=== PATIENT | male | born 1940 | race Caucasian/White ===

== ENCOUNTER 2016-11-14 06:19 | Observation (INO) | payer OTHER ==
[~2016-11-14] VITALS: Ht 162.6 cm; Wt 76.0 kg
[2016-11-14] VITALS (33 sets, daily range): BP systolic 116–176; BP diastolic 55–76; PULSE 60–93; RESP 8–21; Ht 162.6 cm; Wt 76.0 kg
[~2016-11-14 06:19] MED LIST: ACET1TAB40 PO; ASPI-535 PO; ASPI-664 PO; CARV12.579 PO; CARV12.598 PO; CITA10TA84 PO; CITA20TA6 PO; CLON-379 PO; CLOP75TA27 PO; CYCL-319 PO; DEXA2TAB5 PO; GABA300C PO; GABA300C16 PO; Hydrocodone Bit/Acetaminophen PO; IBUP-1542 PO; INSU100C3 SC; ISOS60TA PO; LANT3I SC; LOSA100T7 PO; LOSA50TA6 PO; MTF1000T PO; NOVO3I SC; OMEG1CAP2 PO; OMEP40CA3 PO; OMEP40CA6 PO; PANT40TA4 PO; SIMV40TA2 PO; SIMV40TA3 PO; SPIR25TA PO; TERA5CAP3 PO; TRAM50TA2 PO
[2016-11-14] MEDS ORDERED: SOD CHLORIDE 0.9% 1,000 ML IV SCH ×2 (07:00→10:36)
[2016-11-14] MEDS ORDERED: VERAPAMIL 5 MG INJ ONE (07:08)
[2016-11-14] MEDS ORDERED: MIDAZOLAM 1 MG/ML 2 ML INJ ONE (07:08)
[2016-11-14] MEDS ORDERED: IODIXANOL LOCM 100 ML BTL ONE ×3 (07:08→10:22)
[2016-11-14] MEDS ORDERED: HEPARIN 1000 UNITS/ML 10 ML INJ ONE ×2 (07:08→10:07)
[2016-11-14] MEDS ORDERED: LIDOCAINE 1% (MDV) 20 ML INJ ONE (07:08)
[2016-11-14] MEDS ORDERED: NITROGLYCERIN (IC) 100 MCG/ML INJ ONE (07:08)
[2016-11-14] MEDS ORDERED: FENTAnyl 50 MCG/ML VIAL ONE (07:08)
--- NOTE | 2016-11-14 07:17 | RADRPT ---
PROCEDURE: XR Chest. CLINICAL INDICATION: Preoperative evaluation prior to cardiac catheterization. TECHNIQUE: Portable single view of the chest COMPARISON: 09/03/2014 FINDINGS: Top normal heart size. Subsegmental atelectasis of the left lung base. No acute infiltrate, pleural effusion, or overt congestive heart failure. Degenerative change of the spine and shoulders. IMPRESSION: No definite acute pulmonary disease. RPTAT: [facility] Joceline Snyder Physician Date Time Electronically viewed and signed by Joceline Snyder, Physician on 11/14/2016 07:16 LE/
[2016-11-14] MEDS ORDERED: CHLO25TA13 PO (07:27)
[2016-11-14 07:35] LABS: BASOPHILS % 0.6 % (0.0-2.0); EOSINOPHILS # 0.5 10^3/ul (0.0-0.5); EOSINOPHILS % 7.9 % (0.0-7.0); HEMATOCRIT 32.9 % (42.0-52.0); HEMOGLOBIN 11.1 g/dl (14.0-18.0); LYMPHOCYTES # 2.1 10^3/ul (0.8-2.9); LYMPHOCYTES % 33.1 % (15.0-51.0); MEAN CORPUSCULAR HEMOGLOBIN 29.3 pg (29.0-33.0); MEAN CORPUSCULAR HGB CONC 33.7 g/dl (32.0-37.0); MEAN CORPUSCULAR VOLUME 86.8 fl (82.0-101.0); MEAN PLATELET VOLUME 9.2 fl (7.4-10.4); MONOCYTE # 0.6 10^3/ul (0.3-0.9); MONOCYTES % 9.5 % (0.0-11.0); NEUTROPHILS % 48.7 % (39.0-77.0); PLATELET COUNT 234 10^3/UL (140-415); RED BLOOD COUNT 3.79 10^6/ul (4.70-6.10); RED CELL DISTRIBUTION WIDTH 13.2 % (11.5-14.5); WHITE BLOOD COUNT 6.4 10^3/ul (4.8-10.8)
[2016-11-14] MEDS ORDERED: ISOS30TA5 PO (07:37)
[2016-11-14 07:48] LABS: INR 0.92; PROTIME 12.4 Sec (12.2-14.2)
[2016-11-14 07:49] LABS: PARTIAL THROMBOPLASTIN TIME 27.2 Sec (25.0-35.0)
[2016-11-14 07:54] LABS: CALCIUM 8.9 mg/dl (8.4-10.2); CREATININE 1.49 mg/dl (0.61-1.24); POTASSIUM 3.8 mmol/L (3.5-5.1)
[2016-11-14] MEDS ORDERED: ADENOSINE 90 MG in SOD CHLORIDE 0.9% 90 ML IV SCH (09:00)
[2016-11-14] MEDS ORDERED: ASPIRIN 325 MG TAB ONE (10:08)
[2016-11-14] MEDS ORDERED: CLOPIDOGREL 300 MG TAB ONE (10:08)
--- NOTE | 2016-11-14 10:49 | OPR ---
Date/Time of Note Date/Time of Note DATE: 11/14/16 TIME: 10:39 Operative Report Procedure Date: Nov 14, 2016 Preoperative Diagnosis Abnormal stress test Chest pain Postoperative Diagnosis Obstructive coronary artery disease Operation Performed Left heart catheterization Right and left coronary angiogram Supervision and interpretation of right left coronary angiogram Complex PCI of the proximal to mid LAD with cutting balloon angioplasty and stenting with a Medtronic Christiano 2.5 x 18 mm drug-eluting stent, postdilated to 3.1 mm Conscious sedation Left radial artery approach Surgeon: Darrel Vargas DO Anesthesia Type: other (Conscious sedation) Estimated Blood Loss: minimal Specimen: none Complications: no Pt Condition Post Procedure: stable Disposition: PACU Indications This is a 76-year-old male who presents with unstable angina and abnormal stress test Operative\Procedure Findings Hemodynamics Aortic pressure 154/82 Coronary anatomy Left main is a medium caliber vessel with no significant disease Circumflex a medium caliber vessel with ostial 30% stenosis, first obtuse marginal is medium caliber vessel with mid 20% stenosis. The AV groove circumflex is a small caliber vessel with diffuse disease worse being 50-60%. LAD is a medium caliber vessel with significant calcification seen. In the proximal to mid region at the bifurcation of the first diagonal, there is a calcified 60% area of stenosis, distal 30% stenosis RCA is a medium caliber vessel and dominant with ostial 10% stenosis, mid 10% stenosis, distal 20% stenosis. Procedure Description Patient brought to the Director Of Materials Management after informed consent. Patient was prepped and draped as per protocol. Left radial access was obtained. A 5/6 Turkish sheath was placed in left radial artery. Initially a 5 Turkish [place] was used but would not engage left main well. We next switched out for a 5 Turkish JL 3.5 diagnostic catheter. Angiogram of the left system was performed. We next used a 5 Turkish JR4 catheter and engaged the RCA and antrum was performed. Patient with moderate area of calcified stenosis in the proximal to mid LAD of approximately 60-70%. Because of the uncertainty of the degree of stenosis, FFR was performed. Heparin was used for anticoagulation. An XB LAD 3.56 Turkish guide catheter was used. A Cribspot FFR wire was used to cross the lesion and adenosine was given intravenously as per protocol. Within 1 minute, FFR reading was 0.75 which is significant. We started weight 2.5 compliant balloon with poor expansion given the severe area of calcification. We initially started with a cutting balloon but was unable to cross the lesion. Next and angioscope 2.5 balloon and was able to cover the proximal segment of the stenosis and scorring/cutting balloon angioplasty was performed. We then went in with an NC balloon with improved balloon expansion. We once again tried a new angioscope afterwards was unable to fully cover the lesion and perform scoring angioplasty. We next used a 3.0 noncompliant balloon at high pressure in the region. Given good balloon expansion, we proceeded with planned stenting. We were unable to cross the lesion with a 2.75 Synergy stent or a 2.5 Medtronic christiano stent. We next used a guide liner for support and was able to cover our area of stenosis with a 2.5 x 18 mm Medtronic Christiano drug- eluting stent. Her stent was deployed at high pressure. We next postdilated with a 3.0 noncompliant balloon at high pressure throughout her stent with the use of a guide liner to get our NC balloon to the stent. There was an excellent angiographic result with NEPTALI-3 flow with residual 10% stenosis. Patient remained chest pain-free throughout the procedure but did have intermittent ST elevations during balloon inflations. This was a complex procedure requiring multiple balloons, stents, guide liner. Darrel Vargas DO Nov 14, 2016 10:49
[2016-11-14] MEDS ORDERED: AL HYDROX/MG HYDROX/SIMETH 30 ML CUP PO PRN (11:00)
[2016-11-14] MEDS ORDERED: ONDANSETRON 4 MG INJ IV PRN (11:00)
[2016-11-14] MEDS ORDERED: ACETAMINOPHEN 325 MG TAB PO PRN (11:00)
[2016-11-14] MEDS ORDERED: DEXTROSE 50% 50 ML SYRINGE IV PRN ×2 (11:30)
[2016-11-14] MEDS ORDERED: GLUCOSE GEL 15 GRAM TUBE BUCCAL PRN (11:30)
[2016-11-14] MEDS ORDERED: GLUCAGON 1 MG INJ IM PRN (11:30)
[2016-11-14] MEDS ORDERED: GLUCOSE GEL 15 GRAM TUBE PO PRN ×2 (11:30)
[2016-11-14] MEDS: INSULIN ASPART [NOVOLOG] 3 ML PEN SC SCH ×5 (12:00→20:45)
[2016-11-14] MEDS ORDERED: traMADol 50 MG TAB PO PRN (12:30)
[2016-11-14] MEDS ORDERED: hydrALAzine 20 MG INJ IV PRN (12:30)
[2016-11-14] MEDS: GABAPENTIN 300 MG CAP PO SCH ×2 (12:48→20:38)
[2016-11-14 16:35] LABS: CALCIUM 8.4 mg/dl (8.4-10.2); CREATININE 1.45 mg/dl (0.61-1.24); MAGNESIUM 1.8 mg/dl (1.7-2.5); POTASSIUM 3.9 mmol/L (3.5-5.1)
[2016-11-14] MEDS ORDERED: MAGNESIUM SULFATE 2 GM/50 ML 50 ML IVPB ONE (17:00)
[2016-11-14] MEDS ORDERED: POTASSIUM CHLORIDE 20 MEQ POWDER FOR ORAL SOLN PO ONE (17:00)
--- NOTE | 2016-11-14 19:04 | HP ---
DATE OF ADMISSION: 11/14/2016 HISTORY OF PRESENT ILLNESS: The patient is a 76-year-old gentleman with a history of hypertension, diabetes, severe moderate aortic stenosis, depression, and possible diabetic neuropathy who was seen by as an outpatient for chest pain and subsequently underwent a nuclear stress test which apparently was positive. The patient was brought into the hospital for elective cath. Patient was taken to [facility] and underwent complex PCI of the proximal to mid LAD with cutting balloon angioplasty and stenting with drug-eluting stent via left radial artery approach. Please read detailed cardiac cath report for coronary anatomy. The patient currently is chest pain free. Denies any orthopnea, no reported vomiting. No reported abdominal pain. No reported leg pain. The patient does not have any focal weakness. He is awake, alert, and responsive. The rest of the systems are unremarkable. ALLERGIES: NONE. SOCIAL HISTORY: No smoking. No alcohol. FAMILY HISTORY: Positive for diabetes in his mother and grandmother on maternal side. MEDICATIONS: Reviewed. PHYSICAL EXAMINATION: GENERAL: Patient conscious, awake, and alert. VITAL SIGNS: Temperature 97.5, pulse 78, respirations 17, blood pressure 150/65, and O2 sat 98 percent room air. HEENT: TMs normal. Oropharynx clear. NECK: No mass. CHEST: Fairly clear. CV: Was normal. No murmur. ABDOMEN: Soft, nondistended, nontender. EXTREMITIES: No edema. NEURO: The patient is awake, alert, fairly oriented, with no gross focal deficit. LABS: Done this morning., WBC 6.4, hemoglobin 9.1, and platelet 234. Sodium 139, potassium 3.8, BUN 20, creatinine 1.4, and glucose 111. Patient creatinine back in 2014 was 1.1. IMPRESSION: 1. Obstructive coronary disease, status post percutaneous transluminal coronary angioplasty (PTCA) of proximal to mid left anterior descending (LAD) with a drug-eluting stent. 2. Hypertension. 3. Duodenitis. 4. Dyslipidemia. 5. Possible diabetic neuropathy. 6. Possible history of benign prostatic hypertrophy (BPH). PLAN: Patient admitted in ICU. Patient has been started on aspirin, Plavix and continued on chlorthalidone, Imdur, Cozaar, Aldactone, Protonix, Lipitor, and Carvedilol. The patient will be continued on Lantus as at home and will use pre-meal NovoLog, again he takes twice a day. Please will be started on Accu-Chek reason. Metformin was held due to recent cardiac cath and PTCA. We will do follow up chemistry. Plan of care discussed with the patient's nurse in ICU. We will continue to follow. If the patient continues to do well he will be discharged home tomorrow. The patient was instructed to follow with PMD and Cardiology as before. Dictated By: Sonny Ann MD /paola/layla /Document#: [id number]
--- NOTE | 2016-11-14 19:18 | RADRPT ---
Vent Rate: 60 bpm RR Interval: 0 msec ID Interval: 152 msec QRS Duration: 88 msec QT Interval: 428 msec QTC Interval: 428 msec P-R-T [place]: 51 - 69 - 34 degrees Normal sinus rhythm ST amp; T wave abnormality, consider inferior ischemia Abnormal ECG Electronically Signed By: Lencho Ospina [id number]
--- NOTE | 2016-11-14 19:20 | RADRPT ---
Vent Rate: 72 bpm RR Interval: 0 msec ME Interval: 146 msec QRS Duration: 126 msec QT Interval: 428 msec QTC Interval: 468 msec P-R-T [place]: 56 - 87 - 16 degrees Normal sinus rhythm Right bundle branch block T wave abnormality, consider inferior ischemia Abnormal ECG Electronically Signed By: Lencho Ospina [id number]
[2016-11-14] MEDS ORDERED: ATORVASTATIN 40 MG TAB PO SCH (21:00)
[2016-11-14] MEDS ORDERED: TERAZOSIN 5 MG CAP PO SCH (21:00)
[2016-11-14] MEDS ORDERED: INSULIN GLARGINE [LANtus] 3 ML PEN SC SCH (21:00)
[2016-11-15] VITALS (17 sets, daily range): BP systolic 116–144; BP diastolic 58–72; PULSE 68–86; RESP 13–30
[2016-11-15] MEDS ORDERED: ACCU-CHEK XX SCH (02:00)
[2016-11-15 05:43] LABS: BASOPHILS % 0.5 % (0.0-2.0); EOSINOPHILS # 0.4 10^3/ul (0.0-0.5); EOSINOPHILS % 5.1 % (0.0-7.0); HEMATOCRIT 30.7 % (42.0-52.0); HEMOGLOBIN 10.6 g/dl (14.0-18.0); LYMPHOCYTES # 2.2 10^3/ul (0.8-2.9); LYMPHOCYTES % 26.8 % (15.0-51.0); MEAN CORPUSCULAR HEMOGLOBIN 30.3 pg (29.0-33.0); MEAN CORPUSCULAR HGB CONC 34.5 g/dl (32.0-37.0); MEAN CORPUSCULAR VOLUME 87.7 fl (82.0-101.0); MONOCYTES % 11.9 % (0.0-11.0); NEUTROPHILS % 55.6 % (39.0-77.0); PLATELET COUNT 219 10^3/UL (140-415); RED CELL DISTRIBUTION WIDTH 13.6 % (11.5-14.5); WHITE BLOOD COUNT 8.3 10^3/ul (4.8-10.8)
[2016-11-15] MEDS ORDERED: PANTOPRAZOLE (EC) 40 MG TAB PO SCH (06:00)
[2016-11-15 06:21] LABS: CALCIUM 8.3 mg/dl (8.4-10.2); CREATININE 1.24 mg/dl (0.61-1.24); POTASSIUM 3.7 mmol/L (3.5-5.1)
[2016-11-15] MEDS: INSULIN ASPART [NOVOLOG] 3 ML PEN SC SCH ×2 (07:35→08:24)
[2016-11-15] MEDS: GABAPENTIN 300 MG CAP PO SCH (08:14)
[2016-11-15] MEDS ORDERED: SPIRONOLACTONE 25 MG TAB PO SCH (09:00)
[2016-11-15] MEDS ORDERED: CITALOPRAM 20 MG TAB PO SCH (09:00)
[2016-11-15] MEDS ORDERED: LOSARTAN 50 MG TAB PO SCH (09:00)
[2016-11-15] MEDS ORDERED: CLOPIDOGREL 75 MG TAB PO SCH (09:00)
[2016-11-15] MEDS ORDERED: ISOSORBIDE MONONITRATE(SR)30 MG TAB PO SCH (09:00)
[2016-11-15] MEDS ORDERED: CHLORTHALIDONE 25 MG TAB PO SCH (09:00)
[2016-11-15] MEDS ORDERED: ASPIRIN (EC) 81 MG TAB PO SCH ×2 (09:00)
--- NOTE | 2016-11-15 11:06 | PDOCDIS ---
Discharge Instructions CONDITION Patient Condition: Good HOME CARE INSTRUCTIONS: Diet Instructions: Low Fat /Cholesterol ACTIVITY: Activity Restrictions: Slowly Increase Activity Avoid heavy lifting (Not more than 5 pounds 3 days) FOLLOW UP/APPOINTMENTS Follow-up Plan See primary physician within the next 3 days and have BMP (chemistry panel) checked within the next 3 days Darrel Vargas DO Nov 15, 2016 11:05
--- NOTE | 2016-11-15 11:19 | CONS ---
Date/Time of Note Date/Time of Note DATE: 11/15/16 TIME: 11:13 Assessment/Plan Assessment/Plan Additional Assessment/Plan Unstable angina status post complex PCI of proximal to mid LAD Hypertension Diabetes -Patient doing well postoperatively and renal function has improved. Would hold metformin and Aldactone until repeat basic metabolic panel to be drawn in the next 3-4 days. Counseled patient regarding importance of compliance with aspirin and Plavix therapy for minimum of 1 year to maintain stent patency. DC planning Consultation Date/Type/Reason Admit Date/Time Nov 14, 2016 at 10:38 Initial Consult Date Type of Consultation: cv 24 HR Interval Summary Free Text/Dictation Denies chest pain, shortness of breath or palpitations, ambulating without any symptoms Exam/Review of Systems Vital Signs Vitals Vital Signs Date Time Temp Pulse Resp B/P Pulse Ox O2 Delivery O2 Flow Rate FiO2 11/15/16 09:00 80 16 140/69 95 Room Air 11/15/16 08:00 98.4 Intake and Output 11/14/16 11/14/16 11/15/16 15:00 23:00 07:00 Intake Total 615 ml 1610 ml 480 ml Output Total 300 ml 300 ml 1000 ml Balance 315 ml 1310 ml -520 ml Exam Constitutional: alert, oriented Neck: supple Respiratory: other (Coarse breath sounds bilaterally, no wheezing) Cardiovascular: other (S1-S2 heard), regular rate and rhythm Gastrointestinal: bowel sounds, non-tender, soft Extremities: other (Left wrist +2 radial pulse, no hematoma) Results Result Diagram: 11/15/16 0459 11/15/16 0459 Results 24 hrs Laboratory Tests Test 11/14/16 12:46 11/14/16 15:57 11/14/16 17:16 11/14/16 20:41 Bedside Glucose 104 131 151 Sodium Level 137 Potassium Level 3.9 Chloride Level 105 Carbon Dioxide Level 28 Anion Gap 8 Blood Urea Nitrogen 24 H Creatinine 1.45 H Glucose Level 122 Calcium Level 8.4 Magnesium Level 1.8 Test 11/15/16 01:36 11/15/16 04:59 11/15/16 07:43 Bedside Glucose 77 92 White Blood Count 8.3 # Red Blood Count 3.50 L Hemoglobin 10.6 L Hematocrit 30.7 L Mean Corpuscular Volume 87.7 Mean Corpuscular Hemoglobin 30.3 Mean Corpuscular Hemoglobin Concent 34.5 Red Cell Distribution Width 13.6 Platelet Count 219 Mean Platelet Volume 9.0 Neutrophils % 55.6 Lymphocytes % 26.8 Monocytes % 11.9 H Eosinophils % 5.1 Basophils % 0.5 Nucleated Red Blood Cells % 0.0 Neutrophils # (Manual) 4.6 Lymphocytes # 2.2 Monocytes # 1.0 H Eosinophils # 0.4 Basophils # 0.0 Nucleated Red Blood Cells # 0.0 Sodium Level 138 Potassium Level 3.7 Chloride Level 105 Carbon Dioxide Level 29 Anion Gap 8 Blood Urea Nitrogen 20 Creatinine 1.24 Glucose Level 75 # Calcium Level 8.3 L Medications Medications Current Medications Aspirin (Halfprin) 81 mg DAILY PO Last administered on 11/15/16 08:16; Admin Dose 81 MG; Start 11/15/16 at 09:00 Clopidogrel Bisulfate (plaVIX) 75 mg DAILY PO Last administered on 11/15/16 08: 17; Admin Dose 75 MG; Start 11/15/16 at 09:00 Atorvastatin Calcium (Lipitor) 40 mg DAILY@21 PO Last administered on 11/14/16 20:38; Admin Dose 40 MG; Start 11/14/16 at 21:00 Acetaminophen (Tylenol Tab) 650 mg Q4H PRN PO NON-CARDIAC PAIN LEVEL 1-3; Start 11/14/16 at 11:00 Al Hydrox/Mg Hydrox/Simethicone (Mag-Al Plus) 30 ml Q4H PRN PO GASTROINTESTINAL UPSET; Start 11/14/16 at 11:00 Ondansetron HCl (Zofran Inj) 4 mg Q4H PRN IV NAUSEA AND/OR VOMITING; Start 11/14 at 11:00 Carvedilol (Coreg) 6.25 mg BID PO Last administered on 11/15/16 08:16; Admin Dose 6.25 MG; Start 11/14/16 at 21:00 Diagnostic Test (Pha) (Accu-Chek) 1 ea 02 XX ; Start 11/15/16 at 02:00 Miscellaneous Information 1 ea NOTE XX ; Start 11/14/16 at 11:30 Glucose (Glutose) 15 gm Q15M PRN PO DECREASED GLUCOSE; Start 11/14/16 at 11:30 Glucose (Glutose) 22.5 gm Q15M PRN PO DECREASED GLUCOSE; Start 11/14/16 at 11:30 Dextrose (D50w Syringe) 25 ml Q15M PRN IV DECREASED GLUCOSE; Start 11/14/16 at 11:30 Dextrose (D50w Syringe) 50 ml Q15M PRN IV DECREASED GLUCOSE; Start 11/14/16 at 11:30 Glucagon (Glucagen) 1 mg Q15M PRN IM DECREASED GLUCOSE; Start 11/14/16 at 11:30 Glucose (Glutose) 15 gm Q15M PRN BUCCAL DECREASED GLUCOSE; Start 11/14/16 at 11: 30 Chlorthalidone (Hygroton) 25 mg DAILY PO Last administered on 11/15/16 08:18; Admin Dose 25 MG; Start 11/15/16 at 09:00 Citalopram Hydrobromide (Celexa) 10 mg DAILY PO Last administered on 11/15/16 08:18; Admin Dose 10 MG; Start 11/15/16 at 09:00 Gabapentin (Neurontin) 300 mg BID PO Last administered on 11/15/16 08:14; Admin Dose 300 MG; Start 11/14/16 at 12:30 Insulin Glargine (Lantus) 18 unit HS SC Last administered on 11/14/16 20:44; Admin Dose 18 UNIT; Start 11/14/16 at 21:00 Isosorbide Mononitrate (Imdur) 30 mg DAILY PO Last administered on 11/15/16 08: 17; Admin Dose 30 MG; Start 11/15/16 at 09:00 Losartan Potassium (Cozaar) 50 mg DAILY PO Last administered on 11/15/16 08:17 ; Admin Dose 50 MG; Start 11/15/16 at 09:00 Pantoprazole (Protonix Tab) 40 mg DAILY@06 PO Last administered on 11/15/16 05: 43; Admin Dose 40 MG; Start 11/15/16 at 06:00 Spironolactone (Aldactone) 25 mg DAILY PO Last administered on 11/15/16 08:16; Admin Dose 25 MG; Start 11/15/16 at 09:00 Terazosin HCl (Hytrin) 5 mg HS PO Last administered on 11/14/16 20:38; Admin Dose 5 MG; Start 11/14/16 at 21:00 Tramadol HCl (Ultram) 50 mg Q6H PRN PO PAIN; Start 11/14/16 at 12:30 Hydralazine HCl (Apresoline) 20 mg Q6H PRN IV SBP ABOVE 160; Start 11/14/16 at 12:30 Darrel Vargas DO Nov 15, 2016 11:19
--- NOTE | 2016-11-15 11:32 | DS ---
Date/Time of Note Date/Time of Note DATE: 11/15/16 TIME: 11:30 Discharge Summary Admission/Discharge Info Admit Date/Time Nov 14, 2016 at 10:38 Discharge Date/Time 11/15/2016 Discharge Diagnosis Unstable angina status post PCI to LAD Coronary artery disease Diabetes Renal dysfunction Patient Condition: Good Procedures Left heart catheterization with complex PCI to LAD Hospital Course This is a 76-year-old male who presented for outpatient left heart catheterization secondary to abnormal stress test and symptoms of onset angina. Please refer to cath report, patient with complex stenosis of the proximal to mid LAD status post PCI with drug-eluting stenting of the LAD. Given patient with renal dysfunction, patient placed on IV fluids overnight. Creatinine improved by the morning time. Patient was chest pain-free and ambulate without symptoms. Discharge home with outpatient follow-up Home Meds Active Scripts [Hydrocodone Bit/Acetaminophen] 1 TAB TAB No Conflict Check, 1 TAB PO Q6H Y for PAIN LEVEL 4-6, #30 TAB Prov:ZAKIA DONATO MD 09/08/14 Pantoprazole (Protonix) 40 Mg Tabec, 40 MG PO DAILY@06, #30 TAB Prov:ZAKIA DONATO MD 09/08/14 Insulin Glargine* (Lantus*) 100 Unit/Ml Soln, 18 UNIT SC HS, #1 BOX Prov:ZAKIA DONATO MD 09/08/14 Insulin Aspart* (Novolog Insulin Pen*) 100 Unit/Ml Soln, 0 UNIT SC WITH MEALS BEDTIME, #1 BOX Prov:ZAKIA DONATO MD 09/08/14 Aspirin* (Aspirin* EC) 81 Mg Tabec, 81 MG PO DAILY, #30 TAB Prov:ZAKIA DONATO MD 09/08/14 Reported Medications Chlorthalidone* (Chlorthalidone*) 25 Mg Tablet, 25 MG PO DAILY, TAB 11/14/16 Terazosin Hcl* (Terazosin Hcl*) 5 Mg Capsule, 5 MG PO HS, CAP 09/03/14 Citalopram Hydrobromide* (Citalopram Hydrobromide*) 10 Mg Tablet, 10 MG PO DAILY , TAB 09/03/14 Clonidine Hcl* (Clonidine Hcl*) 0.1 Mg Tab, 0.1 MG PO DAILY, TAB 09/03/14 Carvedilol* (Carvedilol*) 12.5 Mg Tablet, 12.5 MG PO BID, TAB 09/03/14 Simvastatin (Simvastatin) 40 Mg Tablet, 40 MG PO HS, TAB 09/03/14 Losartan Potassium* (Losartan Potassium*) 50 Mg Tablet, 50 MG PO DAILY, TAB 09/03/14 Clopidogrel Bisulfate (Clopidogrel) 75 Mg Tablet, 75 MG PO DAILY, TAB 09/03/14 Gabapentin* (Gabapentin*) 300 Mg Capsule, 300 MG PO BID, CAP 09/03/14 Tramadol HCl (Tramadol HCl) 50 Mg Tab, 50 MG PO Q6H Y for PAIN, TAB 09/03/14 [place]-3 Acid Ethyl Esters (Lovaza) 1 Gm Capsule, 1 GM PO BID, CAP 09/03/14 Discontinued Reported Medications Isosorbide Mononitrate* (Isosorbide Mononitrate*) 30 Mg Tab.er.24h, 30 MG PO DAILY, TAB 11/14/16 Metformin* (Glucophage*) 1,000 Mg Tablet, 1000 MG PO BID, TAB 09/03/14 Spironolactone* (Aldactone*) 25 Mg Tablet, 25 MG PO DAILY, TAB 09/03/14 Omeprazole* (Omeprazole*) 40 Mg Capsule.dr, 40 MG PO DAILY, CAP 09/03/14 Isosorbide Mononitrate* (Isosorbide Mononitrate*) 60 Mg Tab.er.24h, 60 MG PO DAILY, TAB 09/03/14 Discontinued Scripts Cyclobenzaprine Hcl* (Cyclobenzaprine Hcl*) 10 Mg Tablet, 10 MG PO TID, #30 TAB Prov:ZAKIA DONATO MD 09/08/14 Ibuprofen* (Ibuprofen*) 600 Mg Tablet, 600 MG PO Q8, #30 TAB Prov:ZAKIA DONATO MD 09/08/14 Dexamethasone* (Dexamethasone*) 2 Mg Tablet, 2 MG PO taper as outlined, #20 TAB Prov:ZAKIA DONATO MD 09/08/14 Follow-up Plan Follow-up with PMD in the next 3 days as well as for chemistry panel check Primary Care Provider Maday Mak Time spent on discharge: < 30 minutes Pending Labs Laboratory Tests Test 11/14/16 12:46 11/14/16 15:57 11/14/16 17:16 11/14/16 20:41 Bedside Glucose 104mg/dL (70-220) 131mg/dL (70-220) 151mg/dL (70-220) Sodium Level 137mmol/L (135-144) Potassium Level 3.9mmol/L (3.5-5.1) Chloride Level 105mmol/L (97-110) Carbon Dioxide Level 28mmol/L (21-31) Anion Gap 8 (8-16) Blood Urea Nitrogen 24mg/dl (7-20) Creatinine 1.45mg/dl (0.61-1.24) Glucose Level 122mg/dl (70-220) Calcium Level 8.4mg/dl (8.4-10.2) Magnesium Level 1.8mg/dl (1.7-2.5) Test 11/15/16 01:36 11/15/16 04:59 11/15/16 07:43 Bedside Glucose 77mg/dL (70-220) 92mg/dL (70-220) White Blood Count 8.310^3/ul (4.8-10.8) Red Blood Count 3.5010^6/ul (4.70-6.10) Hemoglobin 10.6g/dl (14.0-18.0) Hematocrit 30.7% (42.0-52.0) Mean Corpuscular Volume 87.7fl (82.0-101.0) Mean Corpuscular Hemoglobin 30.3pg (29.0-33.0) Mean Corpuscular Hemoglobin Concent 34.5g/dl (32.0-37.0) Red Cell Distribution Width 13.6% (11.5-14.5) Platelet Count 47761^3/UL (140-415) Mean Platelet Volume 9.0fl (7.4-10.4) Neutrophils % 55.6% (39.0-77.0) Lymphocytes % 26.8% (15.0-51.0) Monocytes % 11.9% (0.0-11.0) Eosinophils % 5.1% (0.0-7.0) Basophils % 0.5% (0.0-2.0) Nucleated Red Blood Cells % 0.0/100WBC (0.0-0.0) Neutrophils # (Manual) 4.610^3/ul (1.7-7.5) Lymphocytes # 2.210^3/ul (0.8-2.9) Monocytes # 1.010^3/ul (0.3-0.9) Eosinophils # 0.410^3/ul (0.0-0.5) Basophils # 0.010^3/ul (0.0-0.1) Nucleated Red Blood Cells # 0.010^3/ul (0.0-0.0) Sodium Level 138mmol/L (135-144) Potassium Level 3.7mmol/L (3.5-5.1) Chloride Level 105mmol/L (97-110) Carbon Dioxide Level 29mmol/L (21-31) Anion Gap 8 (8-16) Blood Urea Nitrogen 20mg/dl (7-20) Creatinine 1.24mg/dl (0.61-1.24) Glucose Level 75mg/dl (70-220) Calcium Level 8.3mg/dl (8.4-10.2) Darrel Vargas DO Nov 15, 2016 11:32
--- NOTE | 2016-11-16 11:07 | DS ---
Date/Time of Note Date/Time of Note DATE: 11/16/16 TIME: 11:07 Discharge Summary Admission/Discharge Info Admit Date/Time Nov 14, 2016 at 10:38 Discharge Date/Time Nov 15, 2016 at 11:30 Discharge Diagnosis Unstable angina status post PCI to LAD Coronary artery disease Diabetes Renal dysfunction Hospital Course This is a 76-year-old male who presented for outpatient left heart catheterization secondary to abnormal stress test and symptoms of onset angina. Please refer to cath report, patient with complex stenosis of the proximal to mid LAD status post PCI with drug-eluting stenting of the LAD. Given patient with renal dysfunction, patient placed on IV fluids overnight. Creatinine improved by the morning time. Patient was chest pain-free and ambulate without symptoms. Discharge home with outpatient follow-up Home Meds Active Scripts [Hydrocodone Bit/Acetaminophen] 1 TAB TAB No Conflict Check, 1 TAB PO Q6H Y for PAIN LEVEL 4-6, #30 TAB Prov:ZAKIA DONATO MD 09/08/14 Pantoprazole (Protonix) 40 Mg Tabec, 40 MG PO DAILY@06, #30 TAB Prov:ZAKIA DONATO MD 09/08/14 Insulin Glargine* (Lantus*) 100 Unit/Ml Soln, 18 UNIT SC HS, #1 BOX Prov:ZAKIA DONATO MD 09/08/14 Insulin Aspart* (Novolog Insulin Pen*) 100 Unit/Ml Soln, 0 UNIT SC WITH MEALS BEDTIME, #1 BOX Prov:ZAKIA DONATO MD 09/08/14 Aspirin* (Aspirin* EC) 81 Mg Tabec, 81 MG PO DAILY, #30 TAB Prov:ZAKIA DONATO MD 09/08/14 Reported Medications Chlorthalidone* (Chlorthalidone*) 25 Mg Tablet, 25 MG PO DAILY, TAB 11/14/16 Terazosin Hcl* (Terazosin Hcl*) 5 Mg Capsule, 5 MG PO HS, CAP 09/03/14 Citalopram Hydrobromide* (Citalopram Hydrobromide*) 10 Mg Tablet, 10 MG PO DAILY , TAB 09/03/14 Clonidine Hcl* (Clonidine Hcl*) 0.1 Mg Tab, 0.1 MG PO DAILY, TAB 09/03/14 Carvedilol* (Carvedilol*) 12.5 Mg Tablet, 12.5 MG PO BID, TAB 09/03/14 Simvastatin (Simvastatin) 40 Mg Tablet, 40 MG PO HS, TAB 09/03/14 Losartan Potassium* (Losartan Potassium*) 50 Mg Tablet, 50 MG PO DAILY, TAB 09/03/14 Clopidogrel Bisulfate (Clopidogrel) 75 Mg Tablet, 75 MG PO DAILY, TAB 09/03/14 Gabapentin* (Gabapentin*) 300 Mg Capsule, 300 MG PO BID, CAP 09/03/14 Tramadol HCl (Tramadol HCl) 50 Mg Tab, 50 MG PO Q6H Y for PAIN, TAB 09/03/14 [place]-3 Acid Ethyl Esters (Lovaza) 1 Gm Capsule, 1 GM PO BID, CAP 09/03/14 Discontinued Reported Medications Isosorbide Mononitrate* (Isosorbide Mononitrate*) 30 Mg Tab.er.24h, 30 MG PO DAILY, TAB 11/14/16 Metformin* (Glucophage*) 1,000 Mg Tablet, 1000 MG PO BID, TAB 09/03/14 Spironolactone* (Aldactone*) 25 Mg Tablet, 25 MG PO DAILY, TAB 09/03/14 Omeprazole* (Omeprazole*) 40 Mg Capsule.dr, 40 MG PO DAILY, CAP 09/03/14 Isosorbide Mononitrate* (Isosorbide Mononitrate*) 60 Mg Tab.er.24h, 60 MG PO DAILY, TAB 09/03/14 Discontinued Scripts Cyclobenzaprine Hcl* (Cyclobenzaprine Hcl*) 10 Mg Tablet, 10 MG PO TID, #30 TAB Prov:ZAKIA DONATO MD 09/08/14 Ibuprofen* (Ibuprofen*) 600 Mg Tablet, 600 MG PO Q8, #30 TAB Prov:ZAKIA DONATO MD 09/08/14 Dexamethasone* (Dexamethasone*) 2 Mg Tablet, 2 MG PO taper as outlined, #20 TAB Prov:ZAIKA DONATO MD 09/08/14 Primary Care Provider MAURICE Mcmahon Nov 16, 2016 11:07
== END 2016-11-15 11:30 | disposition home or self-care (01) ==
LOC: SDS 06:19 → ICU 10:38 → SDS 10:38
PROVIDERS: ADMIT Internal Medicine Cardiovascular Disease; ATTEND Internal Medicine Cardiovascular Disease
DX: I25.110 Atherosclerotic heart disease of native coronary artery with unstable angina pectoris (principal); E11.9 Type 2 diabetes mellitus without complications; I10 Essential (primary) hypertension; E78.5 Hyperlipidemia, unspecified; K29.80 Duodenitis without bleeding; Z83.3 Family history of diabetes mellitus
CPT/HCPCS: 71010; 80048; 82962; 83735; 85025; 85610; 85730; 87081; 92929; 93005; 93458; C1724; C1725; C1874; C1887; J0153; J1644; J1815; J2250; J3010; J3475; Q9967; Z7500; Z7610; G0378

== ENCOUNTER 2017-03-28 20:06 | Inpatient (IN) | END 2017-04-02 18:05 | disposition home or self-care (01) | DRG 872 ==

== ENCOUNTER 2017-12-21 10:25 | Emergency (ER) | END 2017-12-21 13:58 | disposition home or self-care (01) ==